=== PATIENT | female | born 1980 | race Caucasian/White ===

== ENCOUNTER → 2016-07-15 | Outpatient (CLI) | payer OTHER ==
[~2016-07-15] MED LIST: OXYC-360 PO; PRENTAB72 PO
== END ==
LOC: HPND 11:21
PROVIDERS: ATTEND Obstetrics & Gynecology
DX: O09.521 Supervision of elderly multigravida, first trimester (principal); O30.001 Twin pregnancy, unspecified number of placenta and unspecified number of amniotic sacs, first trimester; O34.211 Maternal care for low transverse scar from previous cesarean delivery
CPT/HCPCS: 36416; 76813; 76814

== ENCOUNTER → 2016-08-04 | Outpatient (CLI) | payer OTHER | LOC: HPND 13:24 | PROVIDERS: ATTEND Obstetrics & Gynecology | DX: O09.522 Supervision of elderly multigravida, second trimester (principal); O30.042 Twin pregnancy, dichorionic/diamniotic, second trimester | CPT/HCPCS: 76815; 76817 ==

== ENCOUNTER → 2016-08-19 | Outpatient (CLI) | payer OTHER | LOC: HPND 09:07 | PROVIDERS: ATTEND Obstetrics & Gynecology | DX: O09.522 Supervision of elderly multigravida, second trimester (principal); O30.042 Twin pregnancy, dichorionic/diamniotic, second trimester | CPT/HCPCS: 76811; 76812; 76817 ==

== ENCOUNTER → 2016-09-16 | Outpatient (CLI) | payer OTHER | LOC: HPND 09:19 | PROVIDERS: ATTEND Obstetrics & Gynecology | DX: O30.042 Twin pregnancy, dichorionic/diamniotic, second trimester (principal); O09.522 Supervision of elderly multigravida, second trimester; Z3A.22 22 weeks gestation of pregnancy | CPT/HCPCS: 76816 ==

== ENCOUNTER → 2016-10-21 | Outpatient (CLI) | payer OTHER | LOC: HPND 09:16 | PROVIDERS: ATTEND Obstetrics & Gynecology | DX: O26.842 Uterine size-date discrepancy, second trimester (principal); O09.522 Supervision of elderly multigravida, second trimester; O30.042 Twin pregnancy, dichorionic/diamniotic, second trimester; Z3A.00 Weeks of gestation of pregnancy not specified | CPT/HCPCS: 76816 ==

== ENCOUNTER → 2016-12-16 | Outpatient (CLI) | payer OTHER | LOC: HPND 09:30 | PROVIDERS: ATTEND Obstetrics & Gynecology | DX: O26.843 Uterine size-date discrepancy, third trimester (principal); O30.003 Twin pregnancy, unspecified number of placenta and unspecified number of amniotic sacs, third trimester; O09.523 Supervision of elderly multigravida, third trimester; O34.211 Maternal care for low transverse scar from previous cesarean delivery | CPT/HCPCS: 76816 ==

== ENCOUNTER 2017-01-03 07:00 | Inpatient (IN) | payer OTHER ==
[2017-01-03] MEDS ORDERED: ceFAZolin 2 GM PREMIX 50 ML IV SCH (09:30)
[2017-01-03] MEDS ORDERED: CITRIC ACID-SODIUM CITRATE LIQ 30 ML UDC PO SCH (09:30)
[2017-01-03] MEDS ORDERED: LACTATED RINGER'S 1000 ML IV ONE (09:30)
[2017-01-03 09:53] LABS: AUTOMATED NEUTROPHIL # 6.4 TH/MM3 (1.8-7.7); BASOPHIL # 0.1 TH/MM3 (0-0.2); BASOPHIL % 0.6 % (0.0-2.0); EOSINOPHIL # 0.1 TH/MM3 (0-0.4); EOSINOPHIL % 0.9 % (0.0-4.0); HEMATOCRIT 30.5 % (35.0-46.0); HEMO FLAGS DIFF FINAL; LYMPH % 15.5 % (9.0-44.0); LYMPHOCYTE # 1.3 TH/MM3 (1.0-4.8); MEAN CELL VOLUME 80.9 FL (80.0-100.0); MEAN CORPUSCULAR HEMOGLOBIN 26.6 PG (27.0-34.0); MEAN CORPUSCULAR HGB CONC 32.9 % (32.0-36.0); MONO % 7.5 % (0.0-8.0); NEUT % 75.5 % (16.0-70.0); PLATELET COUNT 189 TH/MM3 (150-450); RED BLOOD COUNT 3.77 MIL/MM3 (4.00-5.30); RED CELL DISTRIBUTION WIDTH 16.3 % (11.6-17.2); WHITE BLOOD COUNT 8.4 TH/MM3 (4.0-11.0)
[2017-01-03 09:55] LABS: BACTERIA, URINE FEW /hpf; BLOOD, URINE NEG (NEG); COMMENT (UR) CULT NOT INDICATED; CULTURE IF INDICATED CULT NOT INDICATED; GLUCOSE,URINE NEG (NEG); HYALINE CAST, URINE 1 /lpf (RARE); KETONE, URINE NEG (NEG); MUCUS URINE FEW /lpf (OCC); NITRITE,URINE NEG (NEG); PH, URINE 7.5 (5.0-8.5); SQUAMOUS EPITHELIAL CELL URINE 6 /hpf (0-5); TRANSITIONAL EPI CELLS, URINE 1 /hpf; URINE COLOR YELLOW (YELLW/STRAW)
[2017-01-03] MEDS ORDERED: LACTATED RINGER'S 1000 ML IV SCH (10:00)
[2017-01-03] MEDS ORDERED: ACETAMINOPHEN 1000 MG/100 ML 100 ML IV ONE (10:15)
[2017-01-03] MEDS ORDERED: ZOLPIDEM TARTRATE 5 MG TAB PO PRN (11:45)
[2017-01-03] MEDS ORDERED: DOCUSATE SODIUM 50 MG/SENNA 8.6 MG TAB PO PRN (11:45)
[2017-01-03] MEDS ORDERED: SIMETHICONE 80 MG CHEWABLE TAB PO PRN (11:45)
[2017-01-03] MEDS ORDERED: OXYTOCIN 30 UNITS-500ML PREMIX 500 ML IV ONE (11:45)
[2017-01-03] MEDS ORDERED: ONDANSETRON HCL 4 MG/2 ML VIAL IVP PRN (11:45)
[2017-01-03] MEDS ORDERED: SODIUM CHLORIDE 0.9% FLUSH 10 ML FLUSH IV FLUSH PRN (11:45)
[2017-01-03] MEDS ORDERED: KETOROLAC TROMETHAMINE 60 MG/2 ML (IM) VIAL IM PRN (11:45)
[2017-01-03] MEDS ORDERED: KETOROLAC TROMETHAMINE 30 MG/ML (IVP) VIAL IV PUSH PRN (11:45)
[2017-01-03] MEDS ORDERED: oxyCODONE/ACETAMINOPHEN 5 MG/325 MG TAB PO PRN ×2 (11:45)
[2017-01-03] MEDS ORDERED: MORPHINE SULFATE PF 5 MG/10 ML VIAL EPIDURAL ONE (12:00)
[2017-01-03] MEDS ORDERED: KETOROLAC TROMETHAMINE 30 MG/ML (IVP) VIAL IV PUSH ONE (12:00)
[2017-01-03] MEDS ORDERED: MEASLES, MUMPS, RUBELLA VACCINE 0.5 ML VIAL SQ ONE (12:00)
[2017-01-03] MEDS ORDERED: ONDANSETRON HCL 4 MG/2 ML VIAL IV PUSH ONE (12:00)
[2017-01-03] MEDS ORDERED: LACTATED RINGER'S 1000 ML INJ 1,000 ML IV ONE (12:00)
[2017-01-03] MEDS ORDERED: ePHEDrine/NS 25 MG/5 ML SYR IV ONE (12:00)
[2017-01-03] MEDS ORDERED: OXYTOCIN 10 UNIT/ML AMP IV ONE (12:00)
[2017-01-03] MEDS ORDERED: PHENYLEPH/NS 1000 MCG/10 ML SYR IV ONE (12:00)
[2017-01-03] MEDS ORDERED: LACTATED RINGER'S 1000 ML INJ 1,000 ML IV SCH (13:04)
[2017-01-03] MEDS ORDERED: OXYTOCIN 30 UNITS-500ML PREMIX 500 ML ONE (14:11)
--- NOTE | 2017-01-03 14:13 | MP ---
cc: JOHN GONZALEZ DATE OF SURGERY: 01/03/2017 PREOPERATIVE DIAGNOSIS: 1. Term , twin 38 weeks' dizygotic 2. Advanced terminal age 36 3. Previous section. 4. Breech vertex presentation. POSTOPERATIVE DIAGNOSIS: 1. Term , twin 38 weeks' dizygotic 2. Advanced terminal age 36 3. Previous section. 4. Breech vertex presentation. 5. Delivered. PROCEDURE: A repeat low transverse section. ANESTHESIA Spinal SURGEON John Gonzalez MD KNIFE SETTER GRINDER MACHINE: Sarah Aguirre ESTIMATED BLOOD LOSS: Procedure is about 200 cc FLUIDS: 1.6 liters crystalloid. OBJECTIVE FINDINGS Following the induction of adequate spinal anesthesia the patient was prepped and draped supine on the operating table left lateral tilt position in sterile fashion with the bladder being drained via Monte catheterization. The abdomen was opened through a Pfannenstiel incision using knife to cutdown skin to the fascia. Fascia opened transversely stripped the muscles. Rectus muscles split in the midline and the peritoneum opened sharply without incident. The bladder flap taken down sharply retracted with Vendor blade. The lower uterine segment incised transversely knife extended the section. There was clear fluid. Baby A was vertex presentation back against the occiput and used to slide the head through the abdominal wound. Mouth was suctioned, cord clamped and cut and baby to team viable vigorous male, 's eight and nine, weight 7 pounds 3 ounces. The B baby was in breech position. Membranes ruptured and with gentle fundal pressure and gentle traction the hips delivered with delivery progressed to the shoulder blades each arm reduced head easily fit through the wound. Mouth was suctioned, cord clamped and cut the baby passed to awaiting team, viable vigorous female 's eight and nine, weight 5 pounds 12 ounces. Cord blood now collected from each properly tagged placenta, the placenta was then removed and the uterine cavity cleaned with laps, the uterus was exteriorized and closed with running suture, first with running locking stitch of Vicryl, second running imbricating stitch of Vicryl. Posterior inspection of the uterus tubes and ovaries are normal. Uterus was placed back into the cavity, repair performed, no bleeding is evident and the bladder flap was closed running stitch of 3-0 Vicryl. All laps, instruments were removed. Counts were correct. The anterior peritoneum closed with 2-0 Vicryl. The fascia closed with running locking stitch of Vicryl corner midline tied, Subcu 3-0 Vicryl and skin with subcuticular Monocryl. Dermabond applied. Counts correct and the patient was awake and taken to the room in good condition. MD TAYLER Daniel/elza /11:35 AM /1:59 PM
[2017-01-03] MEDS ORDERED: EPIDURAL-DIPHENHYDRAMINE HCL 50 MG/ML VIAL IV PUSH PRN (15:15)
[2017-01-03] MEDS ORDERED: EPIDURAL-NO SYSTEMIC NARCOTICS PRN (15:15)
[2017-01-03] MEDS ORDERED: EPIDURAL-DIPHENHYDRAMINE HCL 50 MG CAP PO PRN (15:15)
[2017-01-03] MEDS ORDERED: EPIDURAL-DO NOT ADMINISTER ANTICOAGULANTS PRN (15:15)
[2017-01-03] MEDS ORDERED: EPIDURAL-NALOXONE HCL 0.4 MG/ML AMP IV PUSH PRN (15:15)
[2017-01-03] MEDS ORDERED: OXYTOCIN 30 UNITS-500ML PREMIX 500 ML IV PRN (18:15)
[2017-01-03] MEDS: ACETAMINOPHEN 1000 MG/100 ML VIAL IV SCH (20:00)
[2017-01-03] MEDS ORDERED: SODIUM CHLORIDE 0.9% FLUSH 10 ML FLUSH IV FLUSH SCH (21:00)
[2017-01-04] MEDS: ACETAMINOPHEN 1000 MG/100 ML VIAL IV SCH ×2 (04:24→12:14)
[2017-01-04 05:41] LABS: AUTOMATED NEUTROPHIL # 8.9 TH/MM3 (1.8-7.7); BASOPHIL % 0.4 % (0.0-2.0); EOSINOPHIL % 0.3 % (0.0-4.0); HEMATOCRIT 27.2 % (35.0-46.0); HEMO FLAGS DIFF FINAL; LYMPH % 8.9 % (9.0-44.0); LYMPHOCYTE # 0.9 TH/MM3 (1.0-4.8); MEAN CELL VOLUME 80.1 FL (80.0-100.0); MEAN CORPUSCULAR HEMOGLOBIN 26.2 PG (27.0-34.0); MEAN CORPUSCULAR HGB CONC 32.7 % (32.0-36.0); MONO % 6.7 % (0.0-8.0); NEUT % 83.7 % (16.0-70.0); PLATELET COUNT 151 TH/MM3 (150-450); RED BLOOD COUNT 3.39 MIL/MM3 (4.00-5.30); RED CELL DISTRIBUTION WIDTH 16.1 % (11.6-17.2); WHITE BLOOD COUNT 10.6 TH/MM3 (4.0-11.0)
[2017-01-04 05:55] LABS: BICARBONATE 23.6 MEQ/L (21.0-32.0); POTASSIUM 3.8 MEQ/L (3.5-5.1)
[2017-01-04 18:09] VITALS: BP 101/65; PULSE 67; RESP 17; TEMP 98.1
[2017-01-04] MEDS: IBUPROFEN 600 MG TAB PO PRN (20:04)
[2017-01-05] MEDS: IBUPROFEN 600 MG TAB PO PRN ×2 (04:26→11:48)
--- NOTE | 2017-01-05 08:34 | HHI.DCPOC ---
Discharge Care Plan Report Symptoms to Your Doctor -Temperature above 100.5 degrees -Redness, of incision or excessive or foul smelling drainage -Unusual pain or calf pain -Increased vaginal bleeding -Painful or difficulty urinating -Feelings of extreme sadness or anxiety after 2 weeks Goals to Promote Your Health * To prevent worsening of your condition and complications * To maintain your health at the optimal level Directions to Meet Your Goals Take your medications as prescribed Follow your dietary instruction Follow activity as directed Ensure plenty of rest for recovery Drink fluids for hydration Keep your appointments as scheduled Take your immunizations and boosters as scheduled If your symptoms worsen call your PCP, if no PCP go to Urgent Care Center or Emergency Room Smoking is Dangerous to Your Health. Avoid second hand smoke Call the 24-hour crisis hotline for domestic abuse at Kris Mars MD Jan 05, 2017 08:34
[2017-01-05] MEDS ORDERED: DIPHTH/TETANUS/ACEL PERTUSSIS (BOOSTER) 0.5 ML VIAL/PFS IM ONE (09:00)
--- NOTE | 2017-01-05 09:18 | MD ---
cc: JOHN GONZALEZ ADMISSION DATE: 01/03/2017 DISCHARGE DATE: 01/05/2017 [place] Visit Search.Discharge Date ADMISSION DIAGNOSES 1. Twin at 38 weeks. 2. Advanced maternal age of 36. 3. Previous . 4. Breech vertex presentation. DISCHARGE DIAGNOSES 1. Twin at 38 weeks. 2. Advanced maternal age of 36. 3. Previous . 4. Breech vertex presentation. 5. Delivered. HISTORY OF PRESENT ILLNESS The patient is a 36-year-old white female para 1-0-1-1 with an LMP of 04/12/2016, EDC of 01/17/2017. Her course was notable for twin gestation diagnosed at 6-7 weeks, dizygotic. Her first TM screens were normal. Ultrasound showed appropriate growth and delivery recommended at 38 weeks. HOSPITAL COURSE She was admitted for a repeat low transverse section on 01/03/2017. The A baby had converted to vertex and was a male, Apgars 8 and 9, weight 7 pounds, 3 ounces. B baby was a li breech female, Apgars 8 and 9, weight 5 pounds, 12 ounces. Mom did great with gradual advancement of diet and activity. DISPOSITION Discharged home in excellent condition on 01/05/2017. Both babies had Rh-negative blood, so RhoGAM was not indicated. She will take [id number] Motrin and Tylenol for pain relief, avoid heavy lifting, no sexual activity or driving. She is to return to see me in one week. She was carefully instructed in circumcision care for the male twin. John Gonzalez MD JAW/SSB /8:36 AM /8:59 AM
== END 2017-01-05 14:48 | disposition home or self-care (01) | DRG 766 ==
LOC: H2EB 07:00 → EDSTATUS 09:00 → H1EA 14:48
PROVIDERS: ADMIT Obstetrics & Gynecology; ATTEND Obstetrics & Gynecology
PROC: 10D00Z1 Extraction of Products of Conception, Low, Open Approach (ICD-10-PCS; principal; 2017-01-03)
DX: O34.211 Maternal care for low transverse scar from previous cesarean delivery (principal); Z37.2 Twins, both liveborn; Z3A.38 38 weeks gestation of pregnancy; O09.529 Supervision of elderly multigravida, unspecified trimester; O32.1XX2 Maternal care for breech presentation, fetus 2; O30.049 Twin pregnancy, dichorionic/diamniotic, unspecified trimester
CPT/HCPCS: 80048; 81001; 85025; 86850; 86900; 86901; 87389; J0131; J0690; J1885; J2274; J2370; J2405; J2590; J7120